=== PATIENT | female | born 1990 | race Two or more races ===

== ENCOUNTER 2017-12-01 21:28 | Emergency (ER) | payer MEDICAID ==
[~2017-12-01] VITALS: Ht 154.9 cm; Wt 57.2 kg
[2017-12-01] MEDS ORDERED: PRENATABS RX T1 EACH PO (21:39)
[2017-12-01 21:45] VITALS: BP 108/78
--- NOTE | 2017-12-01 22:02 | Emergency Room Report ---
History of Present Illness General Chief Complaint: Nausea, Vomiting, and Diarrhea Source: Patient, Friend Present Illness HPI Is a 27-year-old female who is 2, para 1, 8 months . She presents with chief complaint of nausea and vomiting and diarrhea. No abdominal pain. No vaginal bleeding. Still felt good movement. Fell body pain and aches. Subjective fever. No sick contact. Also with coughing congestion. Allergies: Coded Allergies: No Known Allergies (Unverified , 12/01/17) Patient History Past Medical History: see triage record Past Surgical History: Pertinent Family History: none Now: Yes - 8 months : 2 Para: 2 Immunizations: other Reviewed Nursing Documentation: PMH: Agreed; PSxH: Agreed Nursing Documentation-PMH Past Medical History: No Stated History Review of Systems Constitutional: Reports: malaise, weakness Eye: Denies: eye pain, blurred vision ENT: Denies: ear pain, nose congestion, throat swelling Respiratory: Reports: cough; Denies: shortness of breath Cardiovascular: Denies: chest pain, palpitations Gastrointestinal: Reports: diarrhea, nausea, vomiting; Denies: abdominal pain Musculoskeletal: Denies: back pain, joint pain Skin: Denies: rash Neurological: Denies: headache, numbness Endocrine: Denies: increased thirst, increased urine Hematologic/Lymphatic: Denies: easy bruising All Other Systems: negative except mentioned in HPI Physical Exam Vital Signs Date Time Temp Pulse Resp B/P (MAP) Pulse Ox O2 Delivery O2 Flow Rate FiO2 12/01/17 21:32 98.1 96 14 106/73 95 Room Air 98.1 vitals is normal Sp02 EP Interpretation: reviewed, normal General Appearance: well appearing, no apparent distress, alert Head: normocephalic, atraumatic Eyes: bilateral eye PERRL, bilateral eye EOMI ENT: hearing grossly normal, normal pharynx Neck: full range of motion, supple, no meningismus Respiratory: chest non-tender, lungs clear, normal breath sounds Cardiovascular #1: regular rate, rhythm, no murmur Gastrointestinal: normal bowel sounds, non tender, no mass, no organomegaly, no bruit, non-distended, other - gravid with good movement Musculoskeletal: back normal, gait/station normal, normal range of motion Neurologic: alert, oriented x3 Psychiatric: mood/affect normal Skin: warm/dry Medical Decision Making Diagnostic Impression: Primary Impression: Nausea, vomiting, and diarrhea Additional Impression: Anemia affecting in third trimester ER Course Patient with nausea vomiting and diarrhea. Most likely a gastritis enteritis. No evidence of bacterial infection. She felt better after IV fluid and Zofran. We'll discharge home. Lab Results Impression labs unremarkable Last Vital Signs Date Time Temp Pulse Resp B/P (MAP) Pulse Ox O2 Delivery O2 Flow Rate FiO2 12/01/17 21:32 98.1 96 14 106/73 95 Room Air 98.1 Status: improved Disposition: HOME, SELF-CARE Condition: Stable Scripts Ondansetron (Zofran) 4 Mg Tablet 4 MG ORAL Q6H PRN for Nausea & Vomiting, #10 TAB 0 Refills Prov: MICHELLE RING M.D. 12/01/17 Additional Instructions: Increase fluid. Follow-up your doctor in 7 days. Return if worse. MICHELLE RING M.D. December 01, 2017 22:02
[2017-12-01 22:19] LABS: APPEARANCE,URINE CLEAR; BILIRUBIN, URINE NEGATIVE (NEGATIVE); COLOR,URINE PALE YELLOW; GLUCOSE, URINE (UA) NEGATIVE (NEGATIVE); KETONES,URINE 4+ (NEGATIVE); LEUKOCYTE ESTERASE ,URINE 1+ (NEGATIVE); NITRITE,URINE NEGATIVE (NEGATIVE); PH,URINE 7 (4.5-8.0); PROTEIN,URINE 1+ (NEGATIVE); UROBILINOGEN,URINE NORMAL MG/DL (0.0-1.0)
[2017-12-01 22:28] LABS: BASOPHILS % (AUTO) 0.6 % (0.0-2.0); EOSINOPHILS % (AUTO) 0.1 % (0.0-3.0); HEMATOCRIT 30.5 % (37.0-47.0); HEMOGLOBIN 10.6 G/DL (12.0-16.0); LYMPHOCYTES % (AUTO) 15.6 % (20.0-45.0); MEAN CORPUSCULAR VOLUME 82 FL (80-99); MONOCYTES % (AUTO) 7.9 % (1.0-10.0); NEUTROPHILS % (AUTO) 75.9 % (45.0-75.0); PLATELET COUNT 376 K/UL (150-450); RED BLOOD COUNT 3.72 M/UL (4.20-5.40); RED CELL DISTRIBUTION WIDTH 11.4 % (11.6-14.8); WHITE BLOOD COUNT 8.5 K/UL (4.8-10.8)
[2017-12-01 22:29] LABS: ANION GAP 12 mmol/L (5-15); BLOOD UREA NITROGEN 8 mg/dL (7-18); CALCIUM 8.8 MG/DL (8.5-10.1); CARBON DIOXIDE 20 MMOL/L (21-32); CHLORIDE 98 MMOL/L (98-107); CREATININE 0.7 MG/DL (0.55-1.30); POTASSIUM 3.4 MMOL/L (3.5-5.1); SODIUM 130 MMOL/L (136-145)
[2017-12-01] MEDS ORDERED: ZOFRAN4 MG ORAL (23:07)
[2017-12-01 23:11] VITALS: BP 108/78
== END 2017-12-01 23:20 | disposition home or self-care (01) ==
LOC: EMR 21:50
DX: O26.893 Other specified pregnancy related conditions, third trimester (principal); R19.7 Diarrhea, unspecified; R11.2 Nausea with vomiting, unspecified; O99.013 Anemia complicating pregnancy, third trimester; D64.9 Anemia, unspecified
CPT/HCPCS: 36415; 80048; 81003; 85025; 96374; 96375; 99284; J2405